=== PATIENT | male | born 1965 | race Caucasian/White ===

== ENCOUNTER 2018-12-06 19:15 | Emergency (ER) | payer SELFPAY ==
[2018-12-06] MEDS: AZITHROMYCIN 500 MG TAB PO (20:45)
[2018-12-06] MEDS: CEFTRIAXONE 250 MG INJ IM (20:48)
[2018-12-06 20:56] LABS: URINE BLOOD (Dip) POC Trace-intact (NEGATIVE); URINE GLUCOSE (Dip) POC Negative (NEGATIVE); URINE KETONES (Dip) POC Negative (NEGATIVE); URINE LEUKOCYTE EST (Dip) POC Negative (NEGATIVE); URINE NITRITE (Dip) POC Negative (NEGATIVE); URINE TOTAL PROTEIN POC 1+ (NEGATIVE)
[2018-12-06 20:56] LABS: URINE PH (Dip) POC 5.5 (5.0-8.5)
[2018-12-11 18:55] LABS: URINE BLOOD (Dip) POC Trace-intact (NEGATIVE); URINE GLUCOSE (Dip) POC Negative (NEGATIVE); URINE KETONES (Dip) POC Negative (NEGATIVE); URINE LEUKOCYTE EST (Dip) POC Negative (NEGATIVE); URINE NITRITE (Dip) POC Negative (NEGATIVE); URINE TOTAL PROTEIN POC 1+ (NEGATIVE)
[2018-12-11 18:55] LABS: URINE PH (Dip) POC 5.5 (5.0-8.5)
== END 2018-12-06 21:40 | disposition home or self-care (01) ==
LOC: FTE 19:15
DX: N34.2 Other urethritis (principal)
CPT/HCPCS: 81003; 87086; 87591; 96372; 99284-25